=== PATIENT | female | born 1985 | race Hispanic/Latino ===

== ENCOUNTER 2017-07-23 09:53 | Day surgery (SDC) | payer OTHER ==
[2017-07-23 10:53] VITALS: BMI 27.8
[2017-07-23 12:03] LABS: Amnisure Test No Membranes Rupture (No Rupture)
== END 2017-07-23 12:50 | disposition home or self-care (01) ==
LOC: L&D/OP 09:53
PROVIDERS: ATTEND Obstetrics & Gynecology
DX: O26.853 Spotting complicating pregnancy, third trimester (principal); Z79.899 Other long term (current) drug therapy; Z3A.40 40 weeks gestation of pregnancy
CPT/HCPCS: 84112

== ENCOUNTER 2017-07-26 23:37 | Inpatient (IN) | payer MEDICAID, OTHER ==
[2017-07-27 00:05] VITALS: BMI 36.3
[2017-07-27] MEDS: Lactated Ringer's 1,000 ML IV SCH ×2 (01:40→06:00)
[2017-07-27] MEDS ORDERED: Promethazine HCl 25 MG/ML VIAL IM PRN ×2 (01:41→11:46)
[2017-07-27] MEDS ORDERED: Ondansetron HCl/PF 4 MG/2 ML Vial IVP PRN ×2 (01:41→11:46)
[2017-07-27] MEDS ORDERED: Lidocaine 1% (PF) 30 ML VIAL SC PRN (01:41)
[2017-07-27 02:00] LABS: Hematocrit 36.4 % (36.0-47.0); Mean Platelet Volume 9.6 fL (7.4-10.4); Red Blood Cell (RBC) Count 4.22 mill/uL (4.20-5.40); White Blood Cell (WBC) Count 11.3 thou/uL (4.8-10.8)
[2017-07-27 02:33] LABS: ALT (SGPT) 15 U/L (8-55); AST (SGOT) 19 U/L (5-34); Alkaline Phosphatase 311 U/L (40-150); Anion Gap 13 mmol/L (10-20); BUN (Urea Nitrogen) 8 mg/dL (7.0-18.7); Bilirubin, Total 0.2 mg/dL (0.2-1.2); Calc. Creatinine Clearance 161 mL/min (70-130); Calcium 9.2 mg/dL (7.8-10.44); Carbon Dioxide 19 mmol/L (22-29); Chloride 108 mmol/L (98-107); Estimated GFR-MDRD Greater than 90; Protein, Total 6.4 g/dL (6.0-8.3)
--- NOTE | 2017-07-27 04:39 | PDOC.LDPN ---
Labor & Delivery Progress Note - Subjective Subjective: painful contractions - Objective Vital signs reviewed and normal: yes General: breathing through contractions SVE: Nurse Dilation: 4 cm Effacement: 50% Station: -2 FHT: category 2, variable decelerations, variability present [place] contractions every: 4-6 min - Assessment (1) Term Code(s): Z34.80 - ENCOUNTER FOR SUPRVSN OF NORMAL , UNSP TRIMESTER Current Visit: Yes Status: Acute Comment: 32 yo @ 40w6d Contractions every 4-6 min. Will recheck in 1 hr and likely will start pitocin at that time. Plan: continue plan of care
[2017-07-27] MEDS ORDERED: LR 500 ML/Oxytocin 10 units 500 ML IV SCH (04:45)
[2017-07-27] MEDS ORDERED: FLU VACC QS2017-18 36 mo. & older 0.5 ML SYRINGE IM ONE (09:00)
[2017-07-27] MEDS ORDERED: Fentanyl 4 mcg/Marc 0.1% Cadd 100 ML ONE (10:57)
[2017-07-27] MEDS ORDERED: Bupivacaine 0.25% HCL 30 ML VIAL ONE (11:11)
[2017-07-27] MEDS ORDERED: Lactated Ringer's 500 ML IV PRN (11:46)
[2017-07-27] MEDS ORDERED: Naloxone HCl 0.4 mg/ml Vial IVP PRN ×2 (11:46)
[2017-07-27] MEDS ORDERED: diphenhydrAMINE HCl 50 MG/ML 1 ML VIAL IVP PRN (11:46)
[2017-07-27] MEDS ORDERED: Acetaminophen 325 MG TAB PO PRN (11:46)
[2017-07-27] MEDS ORDERED: Eucerin (Mineral Oil/Petrolatum,White) 30 gm Jar TOP PRN (11:46)
[2017-07-27] MEDS ORDERED: ePHEDrine/0.9% NaCl/PF SYRINGE 50 mg/10 ml SLOW IVP PRN (11:46)
[2017-07-27] MEDS ORDERED: Fentanyl 4mcg/Marcaine 0.1% Cassette 100 ML EPIDURAL SCH (12:00)
[2017-07-27] MEDS ORDERED: Communication Order-Pharmacy FS SCH (12:00)
--- NOTE | 2017-07-27 12:04 | PDOC.LDPN ---
Labor & Delivery Progress Note - Subjective Subjective: comfortable, no concerns - Objective Vital signs reviewed and normal: yes General: NAD, resting, breathing through contractions Uterine fundus: non tender Dilation: 7 Effacement: 90% Station: -1 FHT: category 2 [place] contractions every: 4 minutes Plan: continue plan of care (pitocin @ 4; epidural placed)
--- NOTE | 2017-07-27 14:52 | PDOC.LDPN ---
Labor & Delivery Progress Note - Subjective Subjective: comfortable - Objective Vital signs reviewed and normal: yes General: NAD, resting Dilation: 5 Effacement: 90% Station: -1 [place] contractions every: 4-5 minutes AROM: clear fluid Resuscitative measures: maternal position change Plan: continue plan of care, pitocin for augmentation (Dr. Maharaj stated his check was a 5 two hours prior. Labor check now reflects no change from two hours prior. Restarted pitocin @ 2.)
[2017-07-27] MEDS ORDERED: Labetalol HCl 100 MG/20 ML VIAL ONE (14:55)
[2017-07-27] MEDS: Labetalol HCl 100 MG/20 ML VIAL SLOW IVP PRN ×2 (14:57→17:39)
--- NOTE | 2017-07-27 16:38 | PDOC.LDPN ---
Labor & Delivery Progress Note - Subjective Subjective: comfortable - Objective Vital signs reviewed and normal: yes General: NAD, resting Uterine fundus: non tender Dilation: 5 Effacement: 90% Station: -1 FHT: category 2 [place] contractions every: 3 AROM: clear fluid IUPC placed: yes Resuscitative measures: maternal oxygen, maternal IV fluids, maternal position change Plan: continue plan of care, labor augmentation, pitocin for augmentation (baby had 7 min of persistent bradycardia; position was changed and it resolved. Currently a cat 2 strip. No change on cervical exam. IUPC placed and Mom is currently not having adequate contractions. )
--- NOTE | 2017-07-27 18:59 | PDOC.LDPN ---
Labor & Delivery Progress Note - Subjective Subjective: painful contractions - Objective Vital signs reviewed and normal: yes Abnormal vital signs: BP - 173/74 General: NAD Uterine fundus: palpable contractions SVE: 9.5/95/0 - nurse check Dilation: 9.5 Effacement: 90% Station: 0 FHT: category 2, late decelerations, variability present [place] contractions every: q2-3min AROM: clear fluid IUPC placed: yes FSE placed: yes Resuscitative measures: maternal oxygen, maternal IV fluids, maternal position change - Assessment (1) Term Code(s): Z34.80 - ENCOUNTER FOR SUPRVSN OF NORMAL , UNSP TRIMESTER Current Visit: Yes Status: Acute Comment: 32 yo @ 40w6d Contractions every 2-3 min. 3 episodes of bradycardia for 1-2min. Currently 140's baseline FHT. Patient with IUPC in place, has made change since last check, currently 9.5/95%/ 0 Will recheck in 1 hour. (2) Hypertension affecting Code(s): O16.9 - UNSPECIFIED MATERNAL HYPERTENSION, UNSPECIFIED TRIMESTER Current Visit: Yes Status: Acute Comment: No hx of preeclampsia or chronic HTN. Urine studies negative for proteinuria consitent with preeclampsia. Will give 40mg Labetalol IV now for SBP> 160. Continue to monitor BP q10min. Plan: continue plan of care, pitocin for augmentation, resuscitative measures
[2017-07-27] MEDS ORDERED: Labetalol HCl 100 MG/20 ML VIAL SLOW IVP SCH (19:15)
[2017-07-27 20:35] LABS: CO2 Tension (PaCO2) 73.6 mmHg (44.0-56.0)
[2017-07-27] MEDS: LR / Pitocin 40 units/1000 ml 1,000 ML IV PRN ×2 (20:58→23:34)
[2017-07-27] MEDS ORDERED: Preparation H Ointment 28 GM TUBE PR PRN (21:18)
[2017-07-27] MEDS ORDERED: Bisacodyl 10 MG SUPP PR PRN (21:18)
[2017-07-27] MEDS ORDERED: Milk Of Magnesia 30 ML UDCUP PO PRN (21:18)
[2017-07-27] MEDS ORDERED: Adacel (T-DAP) 0.5 ML VIAL IM ONE (21:30)
[2017-07-27] MEDS ORDERED: Ibuprofen 800 MG TAB PO SCH (22:00)
[2017-07-28] MEDS: Lactated Ringer's 1,000 ML IV SCH (01:35)
[2017-07-28] MEDS: Ibuprofen 800 MG TAB PO PRN ×2 (04:47→15:08)
[2017-07-28] MEDS ORDERED: Ibuprofen 800 MG TAB PO SCH (06:00)
--- NOTE | 2017-07-28 07:00 | DN-2 ---
DELIVERY PHYSICIAN: Dr. Na Barboza, Dr. Ibrahima Armenta. ATTENDING PHYSICIAN: Luis Alberto Maahraj M.D. PROCEDURE: Spontaneous vaginal delivery. ANESTHESIA: Epidural, local for repair. ESTIMATED BLOOD LOSS: 200 mL PREOPERATIVE DIAGNOSES: 1. Term intrauterine in labor. 2. Induction of labor. 3. Intrapartum hypertension. POSTOPERATIVE DIAGNOSES: 1. Term intrauterine , delivered. 2. Intrapartum hypertension. 3. Thick meconium-stained fluid. INDICATIONS: A 32-year-old female, G1, P0, presented with painful contractions at 40 weeks and 5 days, and was noted to be in labor. DELIVERY NOTE: This is a 32-year-old female G1, P0-0-0-1 at 40 weeks 6 days, who delivered a viable male at 2018 on 07/27/2017. Patient did have multiple episodes of hypertension with SBP into the 180's. She was treated with IV labetalol, and her pressures responded well. Initially, patient was slow to progress. Had rupture of membranes, which revealed light meconium- stained fluid and due to slow progress an IUPC along with a scalp electrode were placed. Patient did not make the adequate contractions for the first few hours and Pitocin was increased. Patient then did have adequate contractions with MVU greater than 200 resulting in good cervical change. Throughout labor, FHT revealed variables with couplet contractions as well as multiple runs of bradycardia down to the 50s at the lowest, the longest run of bradycardia at about 90's lasting 5-7 minutes prior to pushing. Although while pushing, baby did have a bradycardia with a baseline of 90s that while pushing did drop into the 50s-60s, but recovered quickly after contractions to the 90s. A vigorous male was delivered over an intact perineum in the ADITYA position, anterior shoulder and then remainder of the body was delivered. There was nuchal cord x2 that was reducible. The head was held down and mouth, and nares were bulb suctioned. Cord was clamped and cut and the cord blood was collected. Placenta delivered intact with a 3-vessel cord noted. Fundal massage was performed and a firm fundus was firm. The cervix and vagina were inspected and found to have a second degree perineal laceration. Laceration was repaired with 3-0 chromic in the usual fashion with good approximation and hemostasis. Infant was seen by cassandra and was sent to the nursery in good condition for routine care. Apgars were 8 and 9 at 1 and 5 minutes respectively. The patient tolerated, delivery well and went to after routine recovery/care with pressures in normal range at that time. MTDD
[2017-07-28] MEDS: Prenatal Vitamin 1 TAB PO SCH (07:49)
[2017-07-28] MEDS: Docusate (Surfak) 240 MG CAP PO SCH ×2 (07:50→21:07)
[2017-07-28] MEDS: Ferrous Sulfate 325 MG TAB PO SCH ×2 (07:52→15:09)
--- NOTE | 2017-07-28 09:28 | PDOC.PP ---
Post Progress Note Post Day #: 1 PO intake tolerated: yes Flatus: yes Ambulation: yes Vital Signs (12 hours) Temp Pulse Resp BP 07/28/17 07:40 98.3 F 71 20 114/56 L 07/28/17 04:45 98.8 F 75 16 120/58 L 07/28/17 00:25 98.8 F 65 16 132/62 Weight Weight 84.368 kg - Physical Examination General: NAD Cardiovascular: no m/r/g, RRR Respiratory: clear to ausculation bilateral Abdominal: + bowel sounds, lochia, no distention, appropriately TTP Deviation from normal: positive on right Neurological: no gross focal deficits Psychiatric: normal affect Result Diagrams: 07/27/17 01:30 07/27/17 01:30 Additional Labs: Post Labs Blood Type O POSITIVE 07/27/17 01:30 Hep Bs Antigen Non-Reactive S/CO (NonReactive) 07/27/17 01:30 (1) Hypertension affecting Code(s): O16.9 - UNSPECIFIED MATERNAL HYPERTENSION, UNSPECIFIED TRIMESTER Status: Acute Comment: No hx of preeclampsia or chronic HTN. Urine studies negative for proteinuria consitent with preeclampsia. Will give 40mg Labetalol IV now for SBP> 160. Continue to monitor BP q10min. (2) Term Code(s): Z34.80 - ENCOUNTER FOR SUPRVSN OF NORMAL , UNSP TRIMESTER Status: Acute Comment: 32 yo @ 40w6d Contractions every 2-3 min. 3 episodes of bradycardia for 1-2min. Currently 140's baseline FHT. Patient with IUPC in place, has made change since last check, currently 9.5/95%/ 0 Will recheck in 1 hour. - Assessment/Plan pt pain adequately controlled at this time tolerating po, ambulating, passing flatus and urinating well c/o pain in the right calf w/ positive jack's, mildly increased swelling compared to left. Will get RLE doppler to r/o DVT repeat CBC today to check h/h c/o difficult latch, will consult property consultant reports 3 soaked pads post and lochia in excess of her regular period, will recheck h&h
[2017-07-28 10:02] LABS: Hematocrit 29.4 % (36.0-47.0); Mean Platelet Volume 8.8 fL (7.4-10.4); Red Blood Cell (RBC) Count 3.39 mill/uL (4.20-5.40); White Blood Cell (WBC) Count 17.6 thou/uL (4.8-10.8)
--- NOTE | 2017-07-28 12:33 | ULT ---
RIGHT LOWER EXTREMITY VENOUS ULTRASOUND: Date: 07/28/17 COMPARISON: None. HISTORY: Pain in right calf region. TECHNIQUE: Multiplanar Thomas scale and color Doppler images were obtained in a right lower extremity venous ultr asound. Spectral analysis of the Doppler waveforms were performed. FINDINGS: The right common femoral vein, profunda femoral vein, superficial femoral vein, and popliteal vein a re normal in appearance without visible thrombus. These vessels demonstrate normal compression, flow , and augmentation. The posterior tibial vein and greater saphenous vein are also patent. IMPRESSION: No evidence of right lower extremity deep venous thrombosis. POS: [facility]
[2017-07-29] MEDS: Ibuprofen 800 MG TAB PO PRN (01:35)
[2017-07-29] MEDS ORDERED: Cepastat Lozenges 1 LOZ PO PRN (08:05)
[2017-07-29 10:03] VITALS: BP 136/64; TEMP 98.3
[2017-07-29] MEDS: Docusate (Surfak) 240 MG CAP PO SCH (10:16)
[2017-07-29] MEDS: Prenatal Vitamin 1 TAB PO SCH (10:16)
[2017-07-29] MEDS: Ferrous Sulfate 325 MG TAB PO SCH (10:16)
--- NOTE | 2017-07-29 12:42 | DIS ---
DATE OF ENCOUNTER: DATE OF DISCHARGE: 07/29/2017 ADMITTING DIAGNOSIS: Labor. DISCHARGE DIAGNOSIS: Labor. PROCEDURE: Term spontaneous vaginal delivery. CONSULTATIONS: None. HOSPITAL COURSE: The patient is a 32-year-old female who presented to Labor and Delivery in active labor and subsequently had an uncomplicated term spontaneous vaginal delivery. For complete details , please refer to the dictated note. The patient was subsequently transferred to for [facility]. On day #1, the patient had some complaints of pain in her right lower extremi ty, particularly her calf, otherwise had no other complaints. A Doppler was performed to rule out D VT which was free and clear. By day #2, the patient continues to do well. She is tolera ting p.o., voiding on her own, ambulating and having decreased lochia. The pain in her leg has reso lved. PHYSICAL EXAMINATION: VITAL SIGNS: On day of discharge, blood pressure 134/69, respiratory rate of 16, pulse of 69, tempe rature 98.7. GENERAL: She appears to be in no acute distress. She is alert and oriented, and cooperative and pl easant to interact with. HEENT: Normocephalic, atraumatic. ABDOMEN: Soft. Fundus is firm at the umbilicus -2. EXTREMITIES: Nontender. Nonedematous. The patient is being discharged to home on ibuprofen. She has instructions to follow up with the [facility] in 2 weeks. She also has instructions to seek medical attention sooner should she exp erience fever, increasing pain or bleeding.
== END 2017-07-29 12:15 | disposition home or self-care (01) | DRG 775 ==
LOC: L&D/OP 23:37 → L&D 07-27 01:52 → 3SW 07-28 00:41
PROVIDERS: ADMIT Obstetrics & Gynecology; ATTEND Obstetrics & Gynecology
PROC: 10E0XZZ Delivery of Products of Conception, External Approach (ICD-10-PCS; principal; 2017-07-27)
PROC: 0KQM0ZZ Repair Perineum Muscle, Open Approach (ICD-10-PCS; 2017-07-27)
PROC: 10907ZC Drainage of Amniotic Fluid, Therapeutic from Products of Conception, Via Natural or Artificial Opening (ICD-10-PCS; 2017-07-27)
PROC: 10H07YZ Insertion of Other Device into Products of Conception, Via Natural or Artificial Opening (ICD-10-PCS; 2017-07-27)
PROC: 4A1H74Z Monitoring of Products of Conception, Cardiac Electrical Activity, Via Natural or Artificial Opening (ICD-10-PCS; 2017-07-27)
DX: O16.4 Unspecified maternal hypertension, complicating childbirth (principal); O77.0 Labor and delivery complicated by meconium in amniotic fluid; Z3A.40 40 weeks gestation of pregnancy; Z37.0 Single live birth; O69.81X0 Labor and delivery complicated by cord around neck, without compression, not applicable or unspecified; O70.1 Second degree perineal laceration during delivery
CPT/HCPCS: 36415; 80053; 82570; 82805; 84156; 85027; 86780; 87340; J0595; J2001; J7120; S0020

== ENCOUNTER 2020-11-19 11:32 | Emergency (ER) | payer MEDICAID, SELFPAY ==
[2020-11-19 12:11] LABS: #Eosinphils 0.1 thou/uL (0.0-0.7); #Lymphocytes 2.8 thou/uL (1.20-3.40); #Monocytes 0.7 thou/uL (0.11-0.59); #Neutrophils 5.7 thou/uL (1.40-6.50); %Basophils 0.4 % (0.0-1.0); %Eosinophils 1.4 % (0.0-10.0); %Lymphocytes 30.3 % (21.0-51.0); %Monocytes 7.2 % (0.0-10.0); %Neutrophils 60.7 % (42.0-75.0); Mean Corpuscular HGB CONC 33.9 g/dL (32.0-36.0); Mean Corpuscular Hemoglobin 28.9 pg (27.0-31.0); Mean Corpuscular Volume 85.3 fL (78.0-98.0); Mean Platelet Volume 7.9 fL (7.4-10.4); Platelet Count 295 thou/uL (130-400); RBC Distribution Width 11.9 % (11.5-14.5); Red Blood Cell (RBC) Count 4.49 mill/uL (4.20-5.40); White Blood Cell (WBC) Count 9.3 thou/uL (4.8-10.8)
--- NOTE | 2020-11-19 12:39 | ULT ---
FIRST TRIMESTER OBSTETRICAL ULTRASOUND INDICATION: History of with vaginal bleeding TECHNIQUE: Grayscale, M-mode Doppler, color Doppler and spectral Doppler images were obtained. Katerinaruth singh is focused on the clinical indication. Transabdominal and transvaginal exam was performed. COMPARISON: No relevant prior studies available. FINDINGS: Uterus: The uterus measured 6.1 x 6.9 x 10.4cm. Intrauterine gestation: Single. Yolk Sac:Not well seen Pole :Present heart rate: Not detectable heart tones Subchorionic Hemorrhage: None. BIOMETRY: The crown-rump length: 1.7 cm. The mean sac diameter: 2.03 cm . The average gestational age by ultrasound is7 weeks and 4 dayswith estimated due date of June. The clinical age is11 weeks and 0 dayswith estimated due date ofJune 10, 2021. Ovaries: RIGHT OVARY: 1.9 x 3.5 x 3.1 cm. Mass: There is a complex ovarian cyst within the right adnexa suspicious for a corpus luteal cyst reddy suring 1.7 x 1.7 x 1.6 cm. Flow: Normal LEFT OVARY: 2.5 x 2.4 x 2.2 cm. Mass: None. Flow: Normal CUL-DE-SAC: Minimal free fluid IMPRESSION: 1. Intrauterine gestational sac containing pole with a crown-rump length of 1.7 cm but no detec table heart tones is highly suspicious for intrauterine demise. Recommend clinical and sonographic follow-up as clinically indicated. 2. Corpus luteal cyst of the right ovary. 3. Minimal free fluid in the pelvis.
[2020-11-19 13:37] LABS: Bilirubin Negative (Negative); Blood, Urine Negative (Negative); Clarity Clear (Clear); Glucose, Urine (Dipstick) Normal (Negative); Ketone, Urine Negative (Negative); Leukocyte Negative Leu/uL (Negative); Nitrite Negative (Negative); Protein, Urine (Dipstick) Negative (Neg-Trace); Specific Gravity, Urine 1.013 (1.002-1.036); Urobilinogen Normal mg/dL (Less than 2); pH, Urine 5.5 (5.0-9.0)
== END 2020-11-19 14:20 | disposition home or self-care (01) ==
LOC: ERS 11:32
DX: O20.0 Threatened abortion (principal); Z3A.11 11 weeks gestation of pregnancy
CPT/HCPCS: 36415; 76856; 81003; 84702; 85025; 86900; 86901

== ENCOUNTER 2020-11-21 15:19 | Emergency (ER) | payer SELFPAY ==
[2020-11-21 17:02] LABS: #Eosinphils 0.2 thou/uL (0.0-0.7); #Lymphocytes 3.4 thou/uL (1.20-3.40); #Monocytes 1.2 thou/uL (0.11-0.59); #Neutrophils 9.8 thou/uL (1.40-6.50); %Basophils 0.2 % (0.0-1.0); %Lymphocytes 23.6 % (21.0-51.0); %Monocytes 8.1 % (0.0-10.0); %Neutrophils 67.1 % (42.0-75.0); Hemoglobin 13.1 g/dL (12.0-16.0); Mean Corpuscular HGB CONC 34.1 g/dL (32.0-36.0); Mean Corpuscular Hemoglobin 28.9 pg (27.0-31.0); Mean Corpuscular Volume 84.9 fL (78.0-98.0); Mean Platelet Volume 7.9 fL (7.4-10.4); Platelet Count 291 thou/uL (130-400); RBC Distribution Width 11.8 % (11.5-14.5); Red Blood Cell (RBC) Count 4.54 mill/uL (4.20-5.40); White Blood Cell (WBC) Count 14.5 thou/uL (4.8-10.8)
[2020-11-21 17:22] LABS: ALT (SGPT) 21 U/L (8-55); AST (SGOT) 17 U/L (5-34); Albumin 4.3 g/dL (3.5-5.0); Alkaline Phosphatase 133 U/L (40-110); Anion Gap 14 mmol/L (10-20); BUN (Urea Nitrogen) 11 mg/dL (7.0-18.7); Bilirubin, Total 0.2 mg/dL (0.2-1.2); Calc. Creatinine Clearance 0 mL/min (70-130); Carbon Dioxide 20 mmol/L (22-29); Chloride 107 mmol/L (98-107); Globulin 3.3 g/dL (2.4-3.5); Glucose 92 mg/dL (70-105); Potassium 3.6 mmol/L (3.5-5.1); Protein, Total 7.6 g/dL (6.0-8.3); Sodium 137 mmol/L (136-145)
== END 2020-11-21 18:43 | disposition home or self-care (01) ==
LOC: ERS 15:19
DX: O03.9 Complete or unspecified spontaneous abortion without complication (principal)
CPT/HCPCS: 36415; 80053; 84702; 85025; 88305; 99284